=== PATIENT | male | born 1990 | race Caucasian/White ===

== ENCOUNTER 2018-06-20 20:00 | Emergency (ER) | payer OTHER ==
[2018-06-20] MEDS: HYDROCODONE/APAP (5/325) TAB PO (22:31)
[2018-06-20] MEDS: LIDOCAINE 2% JELLY 5 ML TOP (22:31)
== END 2018-06-20 22:54 | disposition home or self-care (01) ==
LOC: FTE 20:00
DX: K04.7 Periapical abscess without sinus (principal)
CPT/HCPCS: 99283; Z7502

== ENCOUNTER 2018-08-20 00:01 | Emergency (ER) | payer OTHER | END 2018-08-20 01:18 | disposition home or self-care (01) | LOC: FTE 00:01 | DX: K04.7 Periapical abscess without sinus (principal) | CPT/HCPCS: 99283; Z7502 ==